=== PATIENT | female | born 1965 | race Caucasian/White ===

== ENCOUNTER 2021-03-05 15:41 | Emergency (ER) | payer OTHER ==
[~2021-03-05 15:41] MED LIST: ASPIRIN325 MG PO; LEXAPRO 10MG TA10 MG PO; PERCOCET 5-3251 EACH PO; ZESTORETIC 20-1 EACH PO
[2021-03-05] MEDS ORDERED: MELOXICAM15 MG PO (16:01)
[2021-03-05] MEDS ORDERED: BUPROPION XL150 MG PO (16:02)
[2021-03-05] MEDS ORDERED: AMLODIPINE BES2.5 MG PO (16:02)
== END 2021-03-05 18:12 | disposition home or self-care (01) ==
LOC: FER 15:41
DX: S93.411A Sprain of calcaneofibular ligament of right ankle, initial encounter (principal); I10 Essential (primary) hypertension; X50.1XXA Overexertion from prolonged static or awkward postures, initial encounter
CPT/HCPCS: 73610

== ENCOUNTER 2022-05-13 21:35 | Emergency (ER) | payer OTHER ==
[~2022-05-13 21:35] MED LIST changes: +AMLODIPINE BES2.5 MG PO; +BUPROPION XL150 MG PO; +MELOXICAM15 MG PO
[2022-05-13 22:51] LABS: CORONAVIRUS 2019 SARS-COV-2 NEGATIVE (NEGATIVE); INFLUENZA A NAA NEGATIVE (NEGATIVE)
[2022-05-15] MEDS ORDERED: AMOXICILLIN500 MG PO (10:56)
== END 2022-05-14 00:08 | disposition left against medical advice (07) ==
LOC: FER 21:35
PROVIDERS: Internal Medicine
DX: J02.9 Acute pharyngitis, unspecified (principal); R51.9 Headache, unspecified; R22.1 Localized swelling, mass and lump, neck; Z53.29 Procedure and treatment not carried out because of patient's decision for other reasons; Z20.822 Contact with and (suspected) exposure to COVID-19
CPT/HCPCS: 87880; 99281; U0002

== ENCOUNTER 2022-05-15 10:13 | Emergency (ER) | payer OTHER ==
[2022-05-15] MEDS ORDERED: AMOXICILLIN500 MG PO (10:56)
== END 2022-05-15 11:26 | disposition home or self-care (01) ==
LOC: FER 10:13
DX: J03.90 Acute tonsillitis, unspecified (principal); I10 Essential (primary) hypertension
CPT/HCPCS: J1030